=== PATIENT | male | born 1965 | race Caucasian/White ===

== ENCOUNTER 2023-04-30 08:34 | Day surgery (SDC) | payer BC ==
[~2023-04-30 08:34] MED LIST: Lactated Ringers 1,000 ML IV SCH
[2023-04-30] MEDS ORDERED: propofoL 50 ML ONE (08:36)
[2023-04-30] MEDS ORDERED: Dexmedetomidine 200 MCG/2 ML SDV ONE (08:37)
[2023-04-30] MEDS ORDERED: Water For Injection, Sterile 20 ML ONE (08:37)
== END 2023-04-30 12:10 | disposition home or self-care (01) ==
LOC: MW.SDS 08:34
PROVIDERS: ATTEND Surgery
DX: Z12.11 Encounter for screening for malignant neoplasm of colon (principal); D12.2 Benign neoplasm of ascending colon; D12.6 Benign neoplasm of colon, unspecified; K21.9 Gastro-esophageal reflux disease without esophagitis; K29.70 Gastritis, unspecified, without bleeding; K29.80 Duodenitis without bleeding; K22.89 Other specified disease of esophagus; K57.30 Diverticulosis of large intestine without perforation or abscess without bleeding; K64.8 Other hemorrhoids; I25.10 Atherosclerotic heart disease of native coronary artery without angina pectoris; I10 Essential (primary) hypertension; G47.00 Insomnia, unspecified; Z88.0 Allergy status to penicillin; Z79.899 Other long term (current) drug therapy
CPT/HCPCS: 43239; 45380; J2704; J7120; 00813; J3490